=== PATIENT | female | born 1990 | race Caucasian/White ===

== ENCOUNTER → 2020-04-24 | Outpatient (CLI) | payer BC | LOC: ZCOL.LAB 15:56 | DX: B34.9 Viral infection, unspecified (principal); Z20.828 Contact with and (suspected) exposure to other viral communicable diseases ==

== ENCOUNTER → 2020-09-30 | Outpatient (CLI) | payer BC ==
[2020-09-30 09:45] LABS: BASO # 0.1 (0.0-0.2); BASO % 1.4 % (0.0-2.0); EOS # 0.1 (0.0-0.7); EOS % 1.9 % (0-4.0); GRAN # 3.4 (1.4-6.5); GRAN % 58.7 % (42.2-75.2); HEMOGLOBIN 13.7 g/dl (12.5-16.0); LYMPH # 1.9 (1.2-3.4); LYMPH % 32.8 % (20.0-51.0); MEAN CELL VOLUME 90 fl (80.0-100.0); MEAN CORPUSCULAR HEMOGLOBIN 31 pg (27.0-31.0); MEAN CORPUSCULAR HGB CONC 34 g/dl (33.0-37.0); MEAN PLATELET VOLUME 10.1 fl (7.4-10.4); MONO # 0.3 (0.1-0.6); MONO % 4.9 % (1.7-9.3); PLATELET COUNT 271 K/mm3 (130-400); RED BLOOD COUNT 4.44 M/mm3 (4.10-5.30)
[2020-09-30 09:53] LABS: ALBUMIN 4.6 gm/dL (3.5-5.0); BILIRUBIN,TOTAL 0.3 mg/dL (0.0-1.0); CALCIUM 9.7 mg/dL (8.4-10.2); CREATININE, serum 0.74 (0.52-1.25); POTASSIUM 3.9 mmol/L (3.4-5.0); TOTAL PROTEIN 7.9 gm/dL (6.4-8.2)
== END ==
LOC: COL.LAB 09:02
PROVIDERS: Physician Assistant Medical
DX: M79.661 Pain in right lower leg (principal)

== ENCOUNTER 2022-08-22 03:34 | Inpatient (IN) | payer BC ==
[2022-08-22] VITALS (37 sets, daily range): BP systolic 87–145; BP diastolic 47–101; PULSE 71–130; TEMP 97.4–98.4
[~2022-08-22] VITALS: Ht 157.5 cm; Wt 84.5 kg
--- NOTE | 2022-08-22 03:55 | NUR ---
Ambulatory to unit for labor assessment, accompanied by spouse. Pt reports "the contractions started @1:00 and got closer and more painfull really fast" Oriented to room, monitor, plan of care.
--- NOTE | 2022-08-22 04:00 | NUR ---
Very dificult SVE, pt tolertates poorly. Amniotrace inconclusive.
[2022-08-22 07:01] LABS: BASO % 0.3 % (0.0-2.0); EOS % 0.2 % (0.0-4.0); GRAN # 11.4 K/mm3 (1.4-6.5); GRAN % 79.8 % (42.2-75.2); HEMOGLOBIN 11.5 g/dl (12.5-16.0); LYMPH # 2.3 K/mm3 (1.2-3.4); LYMPH % 15.8 % (20.0-51.0); MEAN CELL VOLUME 92 fl (80.0-100.0); MEAN CORPUSCULAR HEMOGLOBIN 32 pg (27-31); MEAN CORPUSCULAR HGB CONC 35 g/dl (33.0-37.0); MEAN PLATELET VOLUME 11.9 fl (7.4-10.4); MONO # 0.5 K/mm3 (0.1-0.6); MONO % 3.3 % (1.7-9.3); PLATELET COUNT 194 K/mm3 (130-400); REDCELL DISTRIBUTION WIDTH-CV 13.2 % (11.5-14.5)
[2022-08-22 07:03] LABS: HEMATOCRIT 33.2 % (37.0-47.0)
--- NOTE | 2022-08-22 07:05 | NUR ---
DR. CATES AT BEDSIDE. SVE: /-2. PLAN OF CARE REVIEWED, PT IN AGREEMENT.
[2022-08-22 07:15] LABS: BILIRUBIN,TOTAL 0.2 mg/dL (0.2-1.2); CALCIUM 9.7 mg/dL (8.4-10.2); CREATININE, serum 0.68 mg/dL (0.57-1.11); POTASSIUM 3.9 mmol/L (3.5-4.5); TOTAL PROTEIN 6.4 gm/dL (6.2-8.1)
[2022-08-22 07:55] LABS: COLLECTION METHOD CLEAN CATCH
[2022-08-22 08:26] LABS: PH 7.5 (5.0-8.5); URINE APPEARANCE Cloudy (CLEAR/HAZY); URINE BLOOD 2+ (NEGATIVE); URINE COLOR Yellow (YELLOW); URINE GLUCOSE Negative (NEGATIVE); URINE KETONE Negative (NEGATIVE); URINE NITRATE Negative (NEGATIVE); URINE PROTEIN(semi-quant) Negative (NEGATIVE); URINE UROBILINOGEN 0.2 E.U/dL (0.2-1.0)
[2022-08-22 08:37] LABS: AMORPHOUS CRYSTAL Present (NOT PRESENT); MUCOUS Present (NOT PRESENT); SQUAMOUS EPITHELIAL 0-2 /hpf (0-10); URINE BACTERIA Rare /hpf (NONE SEEN); URINE RBC 0-2 /hpf (0-2); URINE WBC 0-2 /hpf (0-2)
--- NOTE | 2022-08-22 09:06 | NUR ---
PT SITTING UPRIGHT ON THE EDGE OF BED FOR EPIDURAL PLACEMENT. PATTERN MAKER AT BEDSIDE. EFM AND TOCO TRACING INTERMITTENTLY DUE TO MATERNAL POSITIONING. PLUSE OX APPLIED AND BLOOD PRESSURE CYCLING Q5MINS. TEST DOSE AT 0906. VITALS WNL AT THIS TIME. PT TOLERATED PROCEDURE WELL. WILL CONTINUE WITH PLAN OF CARE.
--- NOTE | 2022-08-22 09:25 | NUR ---
DR. CATES AT BEDSIDE. SVE: /-2. FOREBAG NOTED BY , AROM AT 0925, CLEAR FLUID NOTED. PT TOLERATED PROCEDURE WELL.
--- NOTE | 2022-08-22 10:20 | NUR ---
DR. CATES AT BEDSIDE. SVE: /-2, ADVISED STARTING PITOCIN. PT IN AGREEMENT WITH RECCOMENDATION.
--- NOTE | 2022-08-22 11:05 | NUR ---
OKAY TO START PITOCIN PER DR. CATES.
--- NOTE | 2022-08-22 12:38 | NUR ---
DR. CATES AT BEDSIDE, SVE: /-2. MD NOTED THAT BABY WAS OP AND ADVISED TO CONTINUE MOVING POSITIONS TO HELP BABY ROTATE AND KEEP INCREASING PITOCIN.
--- NOTE | 2022-08-22 13:15 | NUR ---
DR. CATES AT BEDSIDE. SVE: /+2. PITOCIN TURNED TO 12MU PER MD. PT REQUEST TO LABOR DOWN, MD AGREES TO 30 MINS OF LABORING DOWN AND THEN BEGIN PUSHING. PT IN AGREEMENT WITH PLAN OF CARE.
--- NOTE | 2022-08-22 15:15 | NUR ---
1515- AT BEDSIDE PUSHING WITH PT. 1520- SPONTANEOUS VAGINAL DELIVERY AT 1520 OF VIABLE FEMALE INFANT. INFANT PLACED ON MOTHER'S ABDOMEN AND CARE OF TRANSFERRED TO NURSERY RN. SPONATNEOUS DELIVERY OF PLACENTA AT 1524. SECOND DEGREE AND LEFT LABIAL REPAIR PER MD. BOGGY UTERINE TONE NOTED, BIMANUAL FUNDAL MASSAGE PERFORMED AND TONE IMPROVED. QFK=[id number]. PITOCIN INFUSING. VITALS WNL AT THIS TIME. WILL CONTINUE WITH PLAN OF CARE.
--- NOTE | 2022-08-22 18:45 | NUR ---
Pt assisted to edge of bed. No lightheadedness or dizziness. Pt assisted to bathroom and able to void. Pericare explained and completed. Pt wheeled to pp and oriented to room. Call light within reach.
[2022-08-23 00:30] VITALS: BP 103/67; PULSE 86; TEMP 97.9
[2022-08-23 05:50] VITALS: BP 107/59; PULSE 95; TEMP 97.3
[2022-08-23 07:00] VITALS: BP 117/68; PULSE 77; TEMP 98
--- NOTE | 2022-08-23 10:36 | NUR ---
Initial visit; Parents thanked [employer] for offering congratulations and God's blessings for the of their daughter. [employer] thanked family for choosing [facility].
[2022-08-23 11:00] VITALS: BP 125/66; PULSE 93; TEMP 97.4
[2022-08-23] MEDS ORDERED: IBU800 M1 PO (12:47)
[2022-08-23 16:00] VITALS: BP 110/53; PULSE 67; TEMP 98.7
[2022-08-23 19:55] VITALS: BP 118/67; PULSE 81; TEMP 97.9
[2022-08-24 08:00] VITALS: BP 109/62; PULSE 66; TEMP 97.7
== END 2022-08-24 12:55 | disposition home or self-care (01) | DRG 807 ==
LOC: LDRO 03:34 → LDR 06:20 → OB 19:43
PROVIDERS: Obstetrics & Gynecology; ADMIT Student in an Organized Health Care Education/Training Program
PROC: 10E0XZZ Delivery of Products of Conception, External Approach (ICD-10-PCS; principal; 2022-08-22)
PROC: 0KQM0ZZ Repair Perineum Muscle, Open Approach (ICD-10-PCS; 2022-08-22)
DX: O48.0 Post-term pregnancy (principal); Z37.0 Single live birth; O70.1 Second degree perineal laceration during delivery; O62.0 Primary inadequate contractions; O34.43 Maternal care for other abnormalities of cervix, third trimester; O99.284 Endocrine, nutritional and metabolic diseases complicating childbirth; E78.00 Pure hypercholesterolemia, unspecified; Z3A.40 40 weeks gestation of pregnancy
CPT/HCPCS: J2590; J7120